=== PATIENT | female | born 1990 | race Caucasian/White ===

== ENCOUNTER 2017-04-06 22:58 | Emergency (ER) | payer SELFPAY ==
[~2017-04-06] VITALS: Ht 162.6 cm; Wt 71.5 kg
[~2017-04-06 22:58] MED LIST: ACET325T45 PO
[2017-04-06 23:00] VITALS: Ht 162.6 cm; Wt 71.5 kg
[2017-04-07] MEDS ORDERED: ONDANSETRON (ODT) 4 MG TAB ODT STA (00:07)
[2017-04-07] MEDS ORDERED: HYDROCODONE/APAP (5/325) TAB PO ONE (00:30)
[2017-04-07] MEDS ORDERED: LIDOCAINE/MYLANTA 40 ML BTL PO ONE (00:30)
[2017-04-07 00:34] LABS: BASOPHILS % 0.3 % (0.0-2.0); EOSINOPHILS # 1.9 10^3/ul (0.0-0.5); EOSINOPHILS % 19.5 % (0.0-7.0); HEMATOCRIT 32.8 % (37.0-47.0); HEMOGLOBIN 10.6 g/dl (12.0-16.0); LYMPHOCYTES # 2.7 10^3/ul (0.8-2.9); LYMPHOCYTES % 27.5 % (15.0-51.0); MEAN CORPUSCULAR HEMOGLOBIN 26.7 pg (29.0-33.0); MEAN CORPUSCULAR HGB CONC 32.3 g/dl (32.0-37.0); MEAN CORPUSCULAR VOLUME 82.6 fl (82.0-101.0); MEAN PLATELET VOLUME 10.3 fl (7.4-10.4); MONOCYTE # 0.7 10^3/ul (0.3-0.9); MONOCYTES % 7.6 % (0.0-11.0); NEUTROPHIL # 4.4 10^3/ul (1.6-7.5); NEUTROPHILS % 44.9 % (39.0-77.0); PLATELET COUNT 254 10^3/UL (140-415); RED BLOOD COUNT 3.97 10^6/ul (4.20-5.40); RED CELL DISTRIBUTION WIDTH 14.5 % (11.5-14.5); WHITE BLOOD COUNT 9.8 10^3/ul (4.8-10.8)
[2017-04-07 00:41] LABS: ADD UMIC YES; UR ASCORBIC ACID NEGATIVE (NEGATIVE); UR BILIRUBIN (Dip) NEGATIVE (NEGATIVE); UR BLOOD (Dip) NEGATIVE (NEGATIVE); UR CLARITY CLOUDY (CLEAR); UR COLOR YELLOW (YELLOW); UR GLUCOSE (Dip) NEGATIVE (NEGATIVE); UR KETONES (Dip) NEGATIVE (NEGATIVE); UR LEUKOCYTE ESTERASE (Dip) TRACE Leu/ul (NEGATIVE); UR MUCUS FEW /HPF (NONE SEEN); UR NITRITE (Dip) NEGATIVE (NEGATIVE); UR RBC 2 /HPF (0-5); UR SPECIFIC GRAVITY (Dip) 1.038 (1.003-1.030); UR SQUAMOUS EPITHELIAL CELL MODERATE /HPF (FEW); UR TOTAL PROTEIN (Dip) 1+ mg/dl (NEGATIVE); UR UROBILINOGEN (Dip) 1+ mg/dL (NEGATIVE)
[2017-04-07 00:58] LABS: ALBUMIN/GLOBULIN RATIO 1.08; CALCIUM 9.6 mg/dl (8.4-10.2); CREATININE 0.67 mg/dl (0.44-1.00); POTASSIUM 3.8 mmol/L (3.5-5.1); TOTAL PROTEIN 7.7 g/dl (6.1-8.1)
--- NOTE | 2017-04-07 01:15 | RADRPT ---
PROCEDURE: ULTRASOUND LIMITED ABDOMEN CLINICAL INDICATION: 26-year-old female with abdominal pain. TECHNIQUE: Multiple sonographic of the right upper quadrant of the abdomen were obtained. The imag es were reviewed on a PACS workstation. COMPARISON: None. FINDINGS: The pancreas is partially visualized and is otherwise without abnormal echogenicity. The liver displays normal echogenicity. The liver measures 15.4 cm in length. No evidence of intrah epatic biliary ductal dilatation is seen. The portal and hepatic veins are unremarkable. The gallbladder demonstrates no wall thickening, sludge, nor stones. No pericholecystic fluid is see n. The common bile duct measures 3.6 mm and is not dilated. The right kidney displays normal echogenicity. The right kidney measures 10.9 cm in length. No calie ctasis or hydronephrosis is seen. No free fluid is seen. IMPRESSION: Unremarkable right upper quadrant abdominal ultrasound. .Ricky Chavez MD, Date Time Electronically viewed and signed by .Ricky Chavez MD, MD on 04/07/2017 01:15 .M/
--- NOTE | 2017-04-07 01:17 | ERD ---
ER Documentation Chief Complaint Chief Complaint upper abd pain x 1 week HPI This is a 26-year-old female who presents the emergency department today complaining of abdominal pain for the past week and worse over the past couple of days. States that the pain is worse with food and that sometimes pain radiates to her back. States she has not taken a medication for the pain. Denies any fevers or chills, vomiting, diarrhea. States her last bowel movement was yesterday. ROS All systems reviewed and are negative except as per history of present illness. Medications Home Meds Active Scripts Acetaminophen* (Tylophen*) 500 Mg Capsule, 1 CAP PO Q6H Y for PAIN AND OR ELEVATED TEMP, #30 CAP Prov:DASHAWN SHARPE PA-C 04/07/17 Docusate Sodium* (Colace*) 100 Mg Capsule, 100 MG PO TID, #30 CAP Prov:DASHAWN SHARPE PA-C 04/07/17 Polyethylene Glycol* (Miralax*) 17 Gm Powd.pack, 17 GM PO DAILY, #15 Prov:DASHAWN SHARPE PA-C 04/07/17 Ondansetron Hcl* (Zofran*) 4 Mg Tablet, 4 MG PO Q6H for NAUSEA AND/OR VOMITING, #30 TAB Prov:DASHAWN SHARPE PA-C 04/07/17 Reported Medications Acetaminophen* (Acetaminophen*) 325 Mg Tablet, 325 MG PO Q6 Y for PAIN, TAB 05/12/14 Allergies Allergies: Coded Allergies: No Known Allergy (Verified , 05/12/14) PMhx/Soc Medical and Surgical Hx: pt denies Medical Hx, pt denies Surgical Hx History of Surgery: No Anesthesia Reaction: No Hx Neurological Disorder: No Hx Respiratory Disorders: No Hx Cardiac Disorders: No Hx Psychiatric Problems: No Hx Miscellaneous Medical Probl: No Hx Alcohol Use: No Hx Substance Use: No Hx Tobacco Use: No Smoking Status: Never smoker Physical Exam Vitals Vital Signs Date Time Temp Pulse Resp B/P Pulse Ox O2 Delivery O2 Flow Rate FiO2 04/06/17 23:00 97.8 72 20 117/75 100 Physical Exam Const: NAD Head: Atraumatic Eyes: Normal Conjunctiva ENT: Normal External Ears, Nose and Mouth. Neck: Full range of motion..~ No meningismus. Resp: Clear to auscultation bilaterally Cardio: Regular rate and rhythm, no murmurs Abd: Soft, epigastric and periumbilical tenderness mild right upper quadrant tenderness, non distended. Normal bowel sounds no tenderness at McBurney's. Skin: No petechiae or rashes Back: No midline or flank tenderness Ext: No cyanosis, or edema Neur: Awake and alert Psych: Normal Mood and Affect Result Diagram: 04/07/170 04/07/17 0020 Results 24 hrs Laboratory Tests Test 04/07/17 00:20 White Blood Count 9.810^3/ul Red Blood Count 3.9710^6/ul Hemoglobin 10.6g/dl Hematocrit 32.8% Mean Corpuscular Volume 82.6fl Mean Corpuscular Hemoglobin 26.7pg Mean Corpuscular Hemoglobin Concent 32.3g/dl Red Cell Distribution Width 14.5% Platelet Count 33353^3/UL Mean Platelet Volume 10.3fl Neutrophils % 44.9% Lymphocytes % 27.5% Monocytes % 7.6% Eosinophils % 19.5% Basophils % 0.3% Nucleated Red Blood Cells % 0.0/100WBC Neutrophils # 4.410^3/ul Lymphocytes # 2.710^3/ul Monocytes # 0.710^3/ul Eosinophils # 1.910^3/ul Basophils # 0.010^3/ul Nucleated Red Blood Cells # 0.010^3/ul Urine Color YELLOW Urine Clarity CLOUDY Urine pH 5.0 Urine Specific [place] 1.038 Urine Ketones NEGATIVEmg/dL Urine Nitrite NEGATIVEmg/dL Urine Bilirubin NEGATIVEmg/dL Urine Urobilinogen 1+mg/dL Urine Leukocyte Esterase TRACELeu/ul Urine Microscopic RBC 2/HPF Urine Microscopic WBC 7/HPF Urine Squamous Epithelial Cells MODERATE/HPF Urine Mucus FEW/HPF Urine Hemoglobin NEGATIVEmg/dL Urine Glucose NEGATIVEmg/dL Urine Total Protein 1+mg/dl Sodium Level 143mmol/L Potassium Level 3.8mmol/L Chloride Level 111mmol/L Carbon Dioxide Level 23mmol/L Anion Gap 13 Blood Urea Nitrogen 17mg/dl Creatinine 0.67mg/dl Glucose Level 95mg/dl Calcium Level 9.6mg/dl Total Bilirubin 0.0mg/dl Direct Bilirubin 0.00mg/dl Indirect Bilirubin 0.0mg/dl Aspartate Amino Transf (AST/SGOT) 43IU/L Alanine Aminotransferase (ALT/SGPT) 51IU/L Alkaline Phosphatase 83IU/L Total Protein 7.7g/dl Albumin 4.0g/dl Globulin 3.70g/dl Albumin/Globulin Ratio 1.08 Lipase 76U/L Current Medications Medications (Trade) Dose Ordered Sig/Vidhi Route PRN Reason Start Time Stop Time Status Last Admin Dose Admin Ondansetron HCl (Zofran Odt) 4 mg ONCE STAT ODT 04/07/17 00:07 04/07/17 00:09 DC 04/07/17 00:19 Acetaminophen/ Hydrocodone Bitart ([place]ott (5/325)) 1 tab ONCE ONCE PO 04/07/17 00:30 04/07/17 00:31 DC 04/07/17 00:19 Miscellaneous Medication (Gi Cocktail (2)) 40 ml ONCE ONCE PO 04/07/17 00:30 04/07/17 00:31 DC 04/07/17 00:19 Morphine Sulfate (morphine) 4 mg ONCE STAT IV 04/07/17 01:22 04/07/17 01:24 DC 04/07/17 01:32 Ondansetron HCl (Zofran Inj) 4 mg ONCE STAT IV 04/07/17 01:25 04/07/17 01:26 DC 04/07/17 01:32 DIAGNOSTIC IMAGING REPORT Patient: JESÚS ARRINGTON : 1990 Age: 26 Sex: F MR #: [id number] DOS: 04/07/17 0007 Ordering MD: DASHAWN SHARPE PA-C Location: [facility], [facility] Room/Bed: PROCEDURE: ULTRASOUND LIMITED ABDOMEN CLINICAL INDICATION: 26-year-old female with abdominal pain. TECHNIQUE: Multiple sonographic of the right upper quadrant of the abdomen were obtained. The images were reviewed on a PACS workstation. COMPARISON: None. FINDINGS: The pancreas is partially visualized and is otherwise without abnormal echogenicity. The liver displays normal echogenicity. The liver measures 15.4 cm in length. No evidence of intrahepatic biliary ductal dilatation is seen. The portal and hepatic veins are unremarkable. The gallbladder demonstrates no wall thickening, sludge, nor stones. No pericholecystic fluid is seen. The common bile duct measures 3.6 mm and is not dilated. The right kidney displays normal echogenicity. The right kidney measures 10.9 cm in length. No caliectasis or hydronephrosis is seen. No free fluid is seen. IMPRESSION: Unremarkable right upper quadrant abdominal ultrasound. .Ricky Chavez MD, MD Date Time Electronically viewed and signed by .Ricky Chavez MD, MD on 04/07/2017 01:15 .M/ CC: DASHAWN SHARPE PA-C DIAGNOSTIC IMAGING REPORT Patient: JESÚS ARRINGTON : 1990 Age: 26 Sex: F MR #: [id number] DOS: 04/07/17 0123 Ordering MD: DASHAWN SHARPE PA-C Location: [facility] Room/Bed: PROCEDURE: CT ABDOMEN/PELVIS WITHOUT CONTRAST CLINICAL INDICATION: 26-year-old female with abdominal pain. TECHNIQUE: The study was performed utilizing a [employer] VCT 64-slice CT scanner. Direct axial sections were obtained through the abdomen and pelvis without the use of intravenous contrast material. Sagittal and coronal reformations were obtained. One or more of the following dose reduction techniques were utilized: automated exposure control, adjustment of the mA and/ or kV according to patient's size and/or the use of iterative reconstruction technique. The images were reviewed on a PACS workstation. CTD/vol = 10.9 mGy ; Total Exam DLP = 655 point a mGy-cm. COMPARISON: Ultrasound right upper quadrant April 07, 2017. FINDINGS: There is trace bibasilar subsegmental atelectasis. There is no evidence for significant pleural effusion. The liver has a normal size and contour without focal areas of abnormal density. No intrahepatic nor extrahepatic biliary ductal dilatation is seen. The gallbladder demonstrates no wall thickening nor pericholecystic fluid. No biliary stones are evident. The pancreas is without areas of abnormal attenuation. The spleen is identified and has a normal size without abnormal density. The adrenal glands are unremarkable. The kidneys are without abnormal density. No hydroureteronephrosis nor nephroureterolithiasis is evident. The urinary bladder is decompressed with a small focal area of soft tissue calcification within the ventral aspect of the bladder presumably within urachal remnant. There is mildly thickened and dilated loops of small bowel without obstruction. There is mild retained stool within the colon. There are a few small diverticula within the proximal sigmoid colon without surrounding inflammatory changes. The appendix is visualized and is without abnormal thickening or surrounding inflammatory reaction. The uterus is retroflexed. There is trace pelvic free fluid. Shotty mesenteric lymph nodes are present. The aortoiliac vessels are without aneurysmal dilatation. The osseous structures are intact. IMPRESSION: 1. Mildly thickened dilated loops of small bowel without obstruction suggestive of an enteritis. 2. Mild retained stool within the colon without obstruction. 3. Minimal proximal sigmoid diverticulosis. 4. No CT evidence for appendicitis. 5. Trace pelvic free fluid. 6. Shotty mesenteric lymph nodes. .Ricky Chavez MD, MD Date Time Electronically viewed and signed by .Ricky Chavez MD, MD on 04/07/2017 02:06 .M/ CC: DASHAWN SHARPE PA-C Procedures/[facility] This is a 26-year-old female who presents the emergency department today complaining of abdominal pain for the past week. On physical exam patient had periumbilical and epigastric tenderness. She did have some mild right upper quadrant tenderness therefore did obtain laboratory work as well as an ultrasound. Laboratory workup showed no elevated white blood cell count. Her hemoglobin is decreased. Her platelets are within normal limits. Electrolytes are within normal limits. Glucose is within normal limits. Liver enzymes are within normal limits. Lipase is within normal limits. UA shows trace leukocyte esterase otherwise negative for infection. She denies any dysuria. test is negative. Right upper quadrant ultrasound is unremarkable. There is no wall thickening, sludge or stones. There is no pericholecystic fluid seen. Common bile duct measures 3.6 mm and is not dilated. Patient was given Zofran, GI cocktail End[place]ott here in the emergency department. I did reevaluate the patient and she indicated that the pain did not improve at all and was persistent. Given this patient was given morphine and I did obtain a CT abdomen pelvis noncontrast. Patient was also given morphine at that time and patient reported pain significantly improved. CT abdomen pelvis noncontrast shows mildly thickened dilated loops of small bowel without obstruction suggestive of an enteritis. There is mild retained stool within the colon without obstruction. There is minimal proximal sigmoid diverticulosis. There is no CT evidence for appendicitis. There is trace pelvic free fluid. Symptoms at this time is consistent with abdominal pain and enteritis likely viral and constipation. She denies any diarrhea and I do not feel that she requires antibiotics at this time. Low suspicion for acute surgical abdomen. Patient will be given a prescription for MiraLAX, Colace, Tylenol and Zofran. Patient indicated she had a history of anemia when she was . Plan to the patient that she does have anemia at this time I do not feel that giving the patient iron pills will be beneficial given her results of constipation. I have instructed her to follow-up with her clinic. She does state that she does have a clinic to go to. I did discuss the patient with Dr. Knapp and he is in agreement with the plan. Departure Diagnosis: Primary Impression: Abdominal pain Abdominal location: periumbilical Qualified Code: R10.33 - Periumbilical abdominal pain Condition: Fair DASHAWN SHARPE PA-C Apr 07, 2017 01:17
[2017-04-07] MEDS ORDERED: morphine 4 MG/ML VIAL IV STA (01:22)
[2017-04-07] MEDS ORDERED: ONDANSETRON 4 MG INJ IV STA (01:25)
--- NOTE | 2017-04-07 02:06 | RADRPT ---
PROCEDURE: CT ABDOMEN/PELVIS WITHOUT CONTRAST CLINICAL INDICATION: 26-year-old female with abdominal pain. TECHNIQUE: The study was performed utilizing a [employer] VCT 64-slice CT scanner. Direct axia l sections were obtained through the abdomen and pelvis without the use of intravenous contrast mate rial. Sagittal and coronal reformations were obtained. One or more of the following dose reduction t echniques were utilized: automated exposure control, adjustment of the mA and/or kV according to pat ient's size and/or the use of iterative reconstruction technique. The images were reviewed on a PAC S workstation. CTD/vol = 10.9 mGy; Total Exam DLP = 655 point a mGy-cm. COMPARISON: Ultrasound right upper quadrant April 07, 2017. FINDINGS: There is trace bibasilar subsegmental atelectasis. There is no evidence for significant pleural eff usion. The liver has a normal size and contour without focal areas of abnormal density. No intrahep atic nor extrahepatic biliary ductal dilatation is seen. The gallbladder demonstrates no wall thicke cristina nor pericholecystic fluid. No biliary stones are evident. The pancreas is without areas of abno rmal attenuation. The spleen is identified and has a normal size without abnormal density. The adre nal glands are unremarkable. The kidneys are without abnormal density. No hydroureteronephrosis nor nephroureterolithiasis is evident. The urinary bladder is decompressed with a small focal area of so ft tissue calcification within the ventral aspect of the bladder presumably within urachal remnant. There is mildly thickened and dilated loops of small bowel without obstruction. There is mild retain ed stool within the colon. There are a few small diverticula within the proximal sigmoid colon without surrounding inflammatory changes. The appendix is visualized and is without abnormal thicken ing or surrounding inflammatory reaction. The uterus is retroflexed. There is trace pelvic free flui d. Shotty mesenteric lymph nodes are present. The aortoiliac vessels are without aneurysmal dilatati on. The osseous structures are intact. IMPRESSION: 1. Mildly thickened dilated loops of small bowel without obstruction suggestive of an enteritis. 2. Mild retained stool within the colon without obstruction. 3. Minimal proximal sigmoid diverticulosis. 4. No CT evidence for appendicitis. 5. Trace pelvic free fluid. 6. Shotty mesenteric lymph nodes. .Ricky Chavez MD, MD Date Time Electronically viewed and signed by .Ricky Chavez MD, MD on 04/07/2017 02:06 ./
[2017-04-07] MEDS ORDERED: ONDA4TAB8 PO (02:31)
[2017-04-07] MEDS ORDERED: ACET500C5 PO (02:32)
[2017-04-07] MEDS ORDERED: DOCU-144 PO (02:32)
[2017-04-07] MEDS ORDERED: POLY17PO6 PO (02:32)
[2017-04-07 02:35] VITALS: BP 124/65; PULSE 81; RESP 20
== END 2017-04-07 02:40 | disposition home or self-care (01) ==
LOC: FTE 22:58
DX: R10.33 Periumbilical pain (principal)
CPT/HCPCS: 36415; 74176; 76705; 80053; 81001; 83690; 85025; 96374; 96375; 99285; J2270; J2405

== ENCOUNTER 2017-09-14 07:50 | Emergency (ER) | END 2017-09-14 10:20 | disposition home or self-care (01) ==

== ENCOUNTER 2018-09-04 16:24 | Emergency (ER) | payer MEDICAID ==
[~2018-09-04] VITALS: Ht 162.6 cm; Wt 79.0 kg
[~2018-09-04 16:24] MED LIST changes: +ACET500C5 PO; +CEPH-443 PO; +DOCU-144 PO; +IBUP-1542 PO; +ONDA4TAB8 PO; +POLY17PO6 PO; +SULF1TAB31 PO
[2018-09-04 16:37] VITALS: BP 118/70; PULSE 94; RESP 18; Ht 162.6 cm; Wt 79.0 kg
--- NOTE | 2018-09-04 21:25 | ERD ---
ER Documentation Chief Complaint Chief Complaint LEFT LOWER PELVIC PAIN WTIH LARGE LUMP REPORTED X 1 MONTH HPI This is a 28-year-old female, who presents ED with complaints of lower pelvic pain/abdominal pain that is been off and on for the past month. Last menstrual period July 08, 2018. On injection control shot. Denies fever, chills, nausea, vomiting, diarrhea, constipation, hematemesis, hemoptysis, melena, hematochezia, dysuria, hematuria, vaginal pain, vaginal discharge and all other symptoms. No known drug allergies. ROS All systems reviewed and are negative except as per history of present illness. Medications Home Meds Active Scripts Ibuprofen* (Motrin*) 600 Mg Tab, 600 MG PO Q6, #30 TAB Prov:TRAVIS ROBLEDO PA-C 09/14/17 Sulfamethoxazole/Trimethoprim* (Bactrim Ds* Tablet) 1 Each Tablet, 1 TAB PO BID, #14 TAB Prov:TRAVIS ROBLEDO PA-C 09/14/17 Cephalexin* (Keflex*) 500 Mg Capsule, 500 MG PO QID for 7 Days, CAP Prov:TRAVIS ROBLEDO PA-C 09/14/17 Acetaminophen* (Tylophen*) 500 Mg Capsule, 1 CAP PO Q6H PRN for PAIN AND OR ELEVATED TEMP, #30 CAP Prov:DASHAWN SHARPE PA-C 04/07/17 Docusate Sodium* (Colace*) 100 Mg Capsule, 100 MG PO TID, #30 CAP Prov:DASHAWN SHARPE PA-C 04/07/17 Polyethylene Glycol* (Miralax*) 17 Gm Powd.pack, 17 GM PO DAILY, #15 Prov:DASHAWN SHARPE PA-C 04/07/17 Ondansetron Hcl* (Zofran*) 4 Mg Tablet, 4 MG PO Q6H for NAUSEA AND/OR VOMITING, #30 TAB Prov:DASHAWN SHARPE PA-C 04/07/17 Reported Medications Acetaminophen* (Acetaminophen*) 325 Mg Tablet, 325 MG PO Q6 PRN for PAIN, TAB 05/12/14 Allergies Allergies: Coded Allergies: No Known Allergy (Verified , 09/14/17) PMhx/Soc History of Surgery: No Anesthesia Reaction: No Hx Neurological Disorder: No Hx Respiratory Disorders: No Hx Cardiac Disorders: No Hx Psychiatric Problems: No Hx Miscellaneous Medical Probl: No Hx Alcohol Use: No Hx Substance Use: No Hx Tobacco Use: No FmHx Family History: No diabetes Physical Exam Vitals Vital Signs Date Temp Pulse Resp B/P (MAP) Pulse Ox O2 O2 Flow FiO2 Time Delivery Rate 09/04/18 98.6 94 18 118/70 98 16:37 (86) Physical Exam Physical Exam Vitals signs: Reviewed by me. General: Well developed, well nourished, in no acute distress. Patient is awake and alert. Head: Normocephalic, atraumatic. Eyes: Normal conjunctiva, Pupils PERRLA, EOM intact grossly ENT: Pharynx is clear, Moist mucous membranes, external ears, nose and mouth normal Neck: Supple, no masses, lymphadenopathy or JVD Respiratory: Clear to auscultation bilaterally with no wheezing, rhonchi, rales, no distress Cardiovascular: RRR, no murmurs, rubs, or gallops Abdominal: Soft, nondistended, no peritoneal signs, no rigidity, no surgical abdomen, bowel sounds present all 4 quadrants, mild tenderness in suprapubic region, nontender to palpation all other areas, McBurney's point nontender, no rebound tenderness, Mobley sign negative Back: No midline tenderness. No flank tenderness Neurologic: Alert and oriented, moving all extremities, normal speech, no focal weakness, no cerebellar signs. Normal mentation Skin: warm and dry, No rash Psych: Normal mood Result Diagram: 09/04/18 2100 09/04/18 2100 Results 24 hrs Laboratory Tests Test 09/04/18 20:55 09/04/18 21:00 09/04/18 21:04 Urine Color YELLOW Urine Clarity SLIGHTLY CLOUDY Urine pH 5.0 Urine Specific [place] 1.029 Urine Ketones NEGATIVE mg/dL Urine Nitrite NEGATIVE mg/dL Urine Bilirubin NEGATIVE mg/dL Urine Urobilinogen 1+ mg/dL Urine Leukocyte Esterase NEGATIVE Too/ul Urine Microscopic RBC 3 /HPF Urine Microscopic WBC 1 /HPF Urine Squamous Epithelial Cells FEW /HPF Urine Mucus MODERATE /HPF Urine Hemoglobin 2+ mg/dL Urine Glucose NEGATIVE mg/dL Urine Total Protein NEGATIVE mg/dl White Blood Count 9.2 10^3/ul Red Blood Count 4.65 10^6/ul Hemoglobin 13.9 g/dl Hematocrit 42.6 % Mean Corpuscular Volume 91.6 fl Mean Corpuscular Hemoglobin 29.9 pg Mean Corpuscular 32.6 g/dl Hemoglobin Concent Red Cell Distribution Width 12.6 % Platelet Count 310 10^3/UL Mean Platelet Volume 10.0 fl Immature Granulocytes % 0.300 % Neutrophils % 53.8 % Lymphocytes % 34.6 % Monocytes % 9.4 % Eosinophils % 1.6 % Basophils % 0.3 % Nucleated Red Blood Cells % 0.0 /100WBC Immature Granulocytes # 0.030 10^3/ul Neutrophils # 4.9 10^3/ul Lymphocytes # 3.2 10^3/ul Monocytes # 0.9 10^3/ul Eosinophils # 0.2 10^3/ul Basophils # 0.0 10^3/ul Nucleated Red Blood Cells # 0.0 10^3/ul Sodium Level 143 mmol/L Potassium Level 3.7 mmol/L Chloride Level 107 mmol/L Carbon Dioxide Level 20 mmol/L Anion Gap 16 Blood Urea Nitrogen 17 mg/dl Creatinine 0.62 mg/dl Est Glomerular Filtrat > 60 mL/min Rate mL/min Glucose Level 96 mg/dl Calcium Level 10.3 mg/dl Total Bilirubin 0.2 mg/dl Direct Bilirubin 0.00 mg/dl Indirect Bilirubin 0.2 mg/dl Aspartate Amino 33 IU/L Transf (AST/SGOT) Alanine 21 IU/L Aminotransferase (ALT/SGPT) Alkaline Phosphatase 79 IU/L Total Protein 8.7 g/dl Albumin 4.7 g/dl Globulin 4.00 g/dl Albumin/Globulin Ratio 1.17 Lipase 120 U/L POC Beta HCG, Qualitative NEGATIVE Procedures/MDM EKG, MONITORS, & DIAGNOSTIC IMAGING: [place] [id number] Radiology Main Line: [phone] DIAGNOSTIC IMAGING REPORT Patient: JESÚS ARRINGTON : 1990 Age: 28 Sex: F [id number] [id number] DOS: 09/04/182048 Ordering MD: LUCY FORD PA-C Location: [facility] Room/Bed: PROCEDURE: US Pelvis. CLINICAL INDICATION: Pelvic pain TECHNIQUE: Multiple sonographic images of the pelvis were obtained utilizing a transabdominal and endovaginal technique. The images were reviewed on a PACS workstation. COMPARISON: None. FINDINGS: The uterus is visualized and measures 6.5 x 3.3 x 4.1 cm. The endometrial echo complex is normal and measures 3.7 mm. There is no evidence for free fluid. The right ovary has a normal echotexture and measures 2.4 x 1.0 x 2.0 cm . The left ovary has a normal echotexture and measures 2.1 x 1.5 x 1.5 cm. No adnexal masses are noted. Positive flow is noted within both ovaries. IMPRESSION: 1. Uterus and endometrial stripe are normal limits. 2. Both ovaries are within normal limits. No gross adnexal masses. No significant free fluid. No evidence of torsion. RPTAT: AARR Physician Janice Date Time Electronically viewed and signed by Physician Janice on 09/04/2018 22:35 JL/ CC: LUCY FORD PA-C [id number] LAB INTERPRETATION: CBC shows no evidence of hemorrhage or infection Chemistry shows no evidence of significant electrolyte abnormalities or renal insufficiency Liver function test shows no evidence of acute biliary or hepatic dysfunction Urine negative Urinalysis remarkable for 1 WBC, 3 RBC, no leukocyte esterase and no nitrite ER COURSE: The patient was offered medication for pain but refuses The patient was stable throughout ED course. I kept the patient and/or family informed of laboratory and diagnostic imaging results throughout the emergency room course. The patient was promptly evaluated and a treatment plan was devised based on H&P and other data. This plan was discussed with the patient who agreed and had no further questions or concerns prior to discharge. MEDICAL DECISION MAKING: This is a 28-year-old female presents ED with lower abdominal/pelvic pain that is been off and on for the past month. Non- woman presenting with abdominal pain. test is negative. Considered causes of female-specific abdominal pain including pelvic inflammatory disease, tubo-ovarian abscess, [id number], and ovarian torsion. Also considered causes of abdominal pain that are not gender-specific (e.g., appendicitis, volvulus, small bowel obstruction, mesenteric adenitis, acute cholecystitis/choledocholithiasis and other biliary pathology, etc.). Patient well-appearing with normal vital signs. No peritoneal signs and abdomen benign on multiple repeat examinations. Pt well hydrated. Laboratory testing and imaging here reviewed and normal. Patient given strict return precautions for worsening pain, inability to eat/drink, fevers (temperature over 100.4F), or other concerns. Prior to discharge all questions answered. She agrees with treatment plan and understands strict return precautions. Follow-up for repeat abdominal exam within 12 hours. DISPOSITION PLAN: We discussed follow up with the patient's primary care doctor within 24 to 48 hours. Patient counseled regarding my diagnostic impression and care plan. Prior to discharge all questions answered. Pt agrees with treatment plan and understands strict return precautions. Precautionary instructions provided including instructions to return to the ER if not improving or for any worsening or changing symptoms or concerns. SPECIALIST FOLLOW UP RECOMMENDED: obgyn Patient has been advised to follow up with primary care in 1-2 days. Disclaimer: Inadvertent spelling and grammatical errors are likely due to EHR/dictation software use and do not reflect on the overall quality of patient care. Also, please note that the electronic time recorded on this note does not necessarily reflect the actual time of the patient encounter. Departure Diagnosis: Primary Impression: Abdominal pain Abdominal location: lower abdomen, unspecified Qualified Codes: R10.30 - Lower abdominal pain, unspecified Patient Instructions: Abdominal Pain, Pelvic Pain, Unknown Cause Referrals: [facility]ERR[facility] L[facility] Additional Instructions: Paciente aconseja volver a Departamento de urgencias inmediatamente para s ntomas nuevos o que empeoran . Paciente aconseja posteriores con el PCP en 1-2 hart . Paciente verbaliza la comprehensin y est de acuerdo con el tratamiento y el curso de accin. Si el paciente no tiene ninguna de atencin primaria pueden seguir con [facility] [id number] [place] [address] o [facility] + [address] [address] LUCY FORD PA-C Sep 04, 2018 21:25
[2018-09-04] MEDS ORDERED: IBUP-1542 PO (23:11)
== END 2018-09-04 23:16 | disposition home or self-care (01) ==
LOC: FTE 16:24
DX: R10.30 Lower abdominal pain, unspecified (principal)
CPT/HCPCS: 36415; 76830; 76856; 80053; 81001; 81025; 83690; 85025; Z7502